=== PATIENT | female | born 1995 | race African-American/Black ===

== ENCOUNTER 2023-07-23 22:51 | Emergency (ER) | payer MEDICAID, SELFPAY ==
[2023-07-23 22:58] VITALS: BP 118/71
--- NOTE | 2023-07-23 23:10 | ED.GENMED ---
History of Present Illness
<CALEB Lamb - Last Filed: 07/24/23 03:31>
General
Chief Complaint: Chest Pain
Time Seen by Provider: 07/23/23 23:05
Travel History
Have you had any contact with someone who has COVID-19?: No
Do you have any symptoms of coronavirus? Fever > 100 degrees, chills, cough, shortness of breath, sore throat, loss of taste or smell, muscle aches, or headache?: No
History of Present Illness
History of Present Illness:
This is a 28 yo female with no significant PMH presenting for chest heaviness since 6 pm today. She states the sensation of heaviness is mild, located in the sternal area and radiates to her back. She first noticed this pain while sitting down today
and states this sensation has been constant since onset with no significant change in quality. She has not experienced this symptom before.
She notes that she has been excessively stressed recently due to family events.
She denies fever, chills, SOB, pain, dizziness, nausea, and vomiting.
Review of Systems
<CALEB Lamb - Last Filed: 07/24/23 03:31>
Review of Systems
Allergies reviewed?: Yes
Phy Exam
<CALEB Lamb - Last Filed: 07/24/23 03:31>
General Physical Exam
General Presentation: well appearing and no apparent distress
General age: appears stated age
General Habitus: normal
General Mental: alert
Cardiovascular Exam
Cardiovascular Exam: regular rate/rhythm
Pulmonary Exam
Pulmonary Exam: lungs clear
Scores
<CALEB Lamb - Last Filed: 07/24/23 03:31>
Heart Score for Chest Pain Patients
STEMI patient?: No
History: Slightly or Non-Suspicious
ECG: Normal
Age: </= 45 years
Risk Factors: No Risk Factors
Troponin: </= Normal Limit
Heart Score for Chest Pain Patients: 0
Heart Score Risk: 2.5% MACE over next 6 weeks
Course
<CALEB Lamb - Last Filed: 07/24/23 03:31>
Orders/Labs/Results
Orders:
Orders
07/23/23 22:53
Electrocardiogram (*1) Urgent
Reason for Study: Chest Pain
EKG- Treatment ONCE
07/23/23 23:58
Complete Blood Count/With Diff Urgent
Comprehensive Metabolic Panel Urgent
Troponin I Urgent
07/24/23 00:15
Bedside Glucose- Treatment ONCE
Abnormal Lab Results
07/23/23
23:58
RBC 4.06 L 10^6/uL
(4.20-5.40)
Hct 36.2 L %
(37.0-47.0)
MCH 31.5 H pg
(27.0-31.0)
MPV 11.0 H fL
(7.4-10.4)
Absolute Monos (auto) 0.7 H 10^3/uL
(0.1-0.6)
Sodium 134 L mmol/L
(135-145)
Glucose 101 H mg/dl
(70-99)
07/23/23 23:58
07/23/23 23:58
Vital Signs
Initial and Last Documented VS:
Initial Vital Signs
Temp Pulse Resp BP Pulse Ox
98.2 F 83 18 118/71 99
07/23/23 22:58 07/23/23 22:58 07/23/23 22:58 07/23/23 22:58 07/23/23 22:58
Last Documented Vital Signs
Temp Pulse Resp BP Pulse Ox
98.2 F 72 20 102/78 100
07/23/23 22:58 07/24/23 01:58 07/24/23 01:58 07/24/23 01:58 07/24/23 01:58
<Blake Lewis, DO - Last Filed: 07/24/23 01:21>
Orders/Labs/Results
Orders:
Orders
07/23/23 22:53
Electrocardiogram (*1) Urgent
Reason for Study: Chest Pain
EKG- Treatment ONCE
07/23/23 23:58
Complete Blood Count/With Diff Urgent
Comprehensive Metabolic Panel Urgent
Troponin I Urgent
07/24/23 00:15
Bedside Glucose- Treatment ONCE
Abnormal Lab Results
07/23/23
23:58
RBC 4.06 L 10^6/uL
(4.20-5.40)
Hct 36.2 L %
(37.0-47.0)
MCH 31.5 H pg
(27.0-31.0)
MPV 11.0 H fL
(7.4-10.4)
Absolute Monos (auto) 0.7 H 10^3/uL
(0.1-0.6)
Sodium 134 L mmol/L
(135-145)
Glucose 101 H mg/dl
(70-99)
07/23/23 23:58
07/23/23 23:58
Vital Signs
Initial and Last Documented VS:
Initial Vital Signs
Temp Pulse Resp BP Pulse Ox
98.2 F 83 18 118/71 99
07/23/23 22:58 07/23/23 22:58 07/23/23 22:58 07/23/23 22:58 07/23/23 22:58
Last Documented Vital Signs
Temp Pulse Resp BP Pulse Ox
98.2 F 72 20 102/78 100
07/23/23 22:58 07/24/23 01:58 07/24/23 01:58 07/24/23 01:58 07/24/23 01:58
<CALEB Lamb - Last Filed: 07/24/23 03:31>
MDM/Problems Addressed
Differential Diagnosis Includes:
Rule out MA
-She is experiencing chest heaviness with no other concerning symptoms, and is otherwise healthy. Suspicion for MA is low
-EKG NSR
-Troponin WNL
-patient declined chest XRAY
-Patient's symptoms likely due to anxiety/stress
Costochondritis
-no chest wall tenderness
<CALEB Lamb - Last Filed: 07/24/23 03:31>
*Radiology
Radiology exam reviewed: other (patient declined chest XRAY)
*Critical Care Note
Total Time (30-74mins, 75-104mins- exclusive of procedures): Not Applicable
<Blake Lewis DO - Last Filed: 07/24/23 01:21>
*EKG
Interpreted by ED Provider?: Yes
EKG Intrepretation Date: 07/23/23
EKG Intrepretation Time: 23:00
Interpretation: normal
Comparison EKG: no comparison EKG present
Rate: normal
Rhythm: sinus
Ischemia: no ischemia
<CALEB Lamb - Last Filed: 07/24/23 03:31>
Update Note
Update Note:
Patient informed that pain is most likely anxiety related. Patient is ok for discharge.
ED Attending Note
<CALEB Lamb - Last Filed: 07/24/23 03:31>
-
Portions of this chart may have been created with voice recognition software.� Occasional wrong word or��sound alike� substitutions may have occurred due to the inherent limitations of voice recognition software.
<Blake Amol Debbie, DO - Last Filed: 07/24/23 01:21>
ED Attending Note
Patient seen and examined by attending physician: Yes
I performed the substantive portion of visit, reviewed & personally made and approve the management plan that is documented in note by myself or DARRYL.: Yes
I performed a history and physical exam of patient and discussed management with resident, I reviewed resident's note and agree with documented findings and plan of care.: Yes
ED Attending Note:
I evaluated the patient at bedside. The patient has concerns for chest pain but is rather vague about the symptoms. She reports no significant trouble breathing. I offered to give her a DuoNeb as she has remote history of asthma but she declines.
She thought she might need oxygen however her room air sats are 100%, her breath sounds are clear, her vital signs are not consistent with PE and she is not tachycardic. She is very hesitant to have blood work drawn as well as imaging however
ultimately she accepted. Troponin negative, suspect anxiety as main cause of symptoms.
Discharge Plan
Departure
Patient Disposition: Home (Routine Discharge)
Date of Disposition: 07/24/23
Time of Disposition: 01:17
Patient with high blood pressure during this ER visit?: No
Discharge Problem:
Chest pain
Instructions: Chest Pain That Is Not Caused by the Heart (DC)
Prescriptions:
No Action
No Current Medications
Patient Comments:
pt states that she takes no medication.
Referrals:
[facility] [Provider Group]
[facility] [Outside] - Follow up in 2-3 days
NONE,* [Family Provider] -
Activity Restrictions/Additional Instructions:
Cardiac blood work and EKG shows no sign of heart attack. Return here if worse.
Interventions
Interventions:
*Risk Screen - Suicide Last Done: 07/24/23 02:02
*General Assessment Last Done: 07/23/23 23:19
*Neglect/Abuse Screening Last Done: 07/23/23 23:19
ED- Fall Risk Assessment Last Done: 07/23/23 23:19
*ED COVID-19 Vaccine History Last Done: 07/23/23 23:19
*Nursing Disposition Last Done: 07/24/23 02:02
ED- Cardiac Assessment Last Done: 07/23/23 23:19
Discharge Date and Time
Discharge Date/Time: 07/24/23 02:03
Print Language: GERMAN
[2023-07-24 00:09] LABS: % Basophils 1.1 % (0-2); % Eosinophils 1.5 % (0-6); % Immature Granulocytes 0.2 % (0-0.5); % Lymphocytes 33.8 % (20.5-51.1); % Neutrophils 56.4 % (42.2-75.2); Absolute Basophils 0.1 10^3/uL (0-0.2); Absolute Eosinophils 0.1 10^3/uL (0-0.7); Absolute Lymphocytes 3.1 10^3/uL (1.2-3.4); Absolute Monocytes 0.7 10^3/uL (0.1-0.6); Absolute Neutrophils 5.2 10^3/uL (1.4-6.5); Hematocrit 36.2 % (37.0-47.0); Hemoglobin 12.8 g/dL (12.0-16.0); Mean Corp Hgb Conc. 35.4 g/dL (33.0-37.0); Mean Corpuscular Hgb 31.5 pg (27.0-31.0); Mean Corpuscular Volume 89.2 fL (81.0-99.0); Nucleated Red Blood Cells % 0 %; Platelet Count 248 10^3/uL (130-400); Red Blood Cell Count 4.06 10^6/uL (4.20-5.40); Red Cell Dist. Width 12.1 % (11.5-14.5); White Blood Cell Count 9.3 10^3/uL (4.8-10.8)
[2023-07-24 00:33] LABS: ALT (SGPT) 14 U/L (0-35); AST (SGOT) 18 U/L (14-36); Alkaline Phosphatase 91 U/L (38-126); Blood Urea Nitrogen 9 mg/dl (7-17); Calcium 9.8 mg/dl (8.4-10.2); Carbon Dioxide 28 mmol/L (22-30); Chloride 104 mmol/L (98-107); Glucose 101 mg/dl (70-99); Potassium 3.7 mmol/L (3.5-5.1); Sodium 134 mmol/L (135-145); Total Bilirubin 0.4 mg/dl (0.2-1.3); eGFR > 60.00
[2023-07-24 00:37] LABS: Troponin I < 0.012 ng/ml
[2023-07-24 01:11] VITALS: BP 100/57
[2023-07-24 01:58] VITALS: BP 102/78
== END 2023-07-24 02:03 | disposition home or self-care (01) ==
LOC: EMR 22:51
PROVIDERS: EMERGENCY PHYSICIAN Emergency Medicine
DX: R07.89 Other chest pain (principal); M54.9 Dorsalgia, unspecified; Z73.3 Stress, not elsewhere classified; F41.9 Anxiety disorder, unspecified; J45.909 Unspecified asthma, uncomplicated; Z88.5 Allergy status to narcotic agent; Z88.8 Allergy status to other drugs, medicaments and biological substances
CPT/HCPCS: 99283; 80053; 84484; 85025; 93005

== ENCOUNTER 2023-07-30 18:27 | Emergency (ER) | payer MEDICAID, SELFPAY ==
[2023-07-30 18:31] VITALS: BP 111/74; BMI 29.3
[2023-07-30 20:10] VITALS: BP 102/58
--- NOTE | 2023-07-30 21:02 | ED.GENMED ---
History of Present Illness
General
Chief Complaint: Vaginal Bleeding
Source: patient
Exam Limitations: none
Time Seen by Provider: 07/30/23 20:08
Nursing documentation reviewed up to this point in time: agreed with
Travel History
Have you had any contact with someone who has COVID-19?: No
Do you have any symptoms of coronavirus? Fever > 100 degrees, chills, cough, shortness of breath, sore throat, loss of taste or smell, muscle aches, or headache?: No
History of Present Illness
History of Present Illness:
Patient is a 28-year-old female who presents to the ER for evaluation of spotting. She reports that she started with bright red blood vaginal spotting and now has become a little dark over the past 2 days. She has not needed to wear a pad or
tampon for this. She wants to make sure she is not . Her last regular menstrual period was 2-3 weeks ago. She reports it is a possibility that she is . She denies any actual abdominal pain. She had a 'little irritation'
vaginally looked in the area and noticed a stretch hayley in her right leg area she denies any abdominal pain /cramping. Denies any other complaints.
G7 4 lives births 2 misscarriage and one .
Patient reports she is currently homeless
Review of Systems
Review of Systems
Allergies reviewed?: Yes
All Other Systems: ROS reviewed and negative except as documented in HPI and ROS
Constitutional: Reports no symptoms; Denies fever, fatigue or chills
Respiratory: Reports no symptoms
Cardiac: Reports no symptoms
ABD/GI: Reports no symptoms; Denies abdominal pain or vomiting
: Reports other (vaginal spotting )
Musculoskeletal: Reports no symptoms
Skin: Reports no symptoms
Endocrine: Reports no symptoms
Hematologic/Lymphatic: Reports no symptoms
Psychiatric: Reports no symptoms
Phy Exam
General Physical Exam
General Presentation: no apparent distress
General age: appears stated age
General Skin: warm and dry
General Habitus: normal
General Mental: alert
General Hydration: appears well hydrated
Gastrointestinal Exam
Gastrointestinal Exam: normal bowel sounds, non tender and soft
Neurological Exam
Neurological Exam: alert and oriented x3
Musculoskeletal Exam
Musculoskeletal Exam: other (right inner thigh stretch hayley no bleeding or abrasion )
Skin Exam
Skin Exam: normal color and warm/dry
Psychiatric Exam
Psychiatric Exam: normal mood/affect
Course
Orders/Labs/Results
Orders:
Orders
07/30/23 20:36
Test Result ONCE
07/30/23 21:05
HCG, Urine Qualitative Screen Urgent
Date Specimen was Collected: 07/30/23
Time Specimen was Collected: 20:55
Urinalysis Reflex To Culture Urgent
Date Specimen was Collected: 09/28/17
Time Specimen was Collected: 01:33
Abnormal Lab Results
07/30/23
21:05
Urine Urobilinogen 3+ A
(Neg - 1+)
Vital Signs
Initial and Last Documented VS:
Initial Vital Signs
Temp Pulse Resp BP Pulse Ox
97.8 F 82 16 111/74 100
07/30/23 18:31 07/30/23 18:31 07/30/23 18:31 07/30/23 18:31 07/30/23 18:31
Last Documented Vital Signs
Temp Pulse Resp BP Pulse Ox
98.5 F 90 18 103/66 97
07/30/23 20:10 07/30/23 22:03 07/30/23 22:03 07/30/23 23:00 07/30/23 23:00
MDM/Problems Addressed
Differential Diagnosis Includes:
Not limited to dysfunction and bleeding
MDM/Problems Addressed:
Patient is a 28-year-old female presents to the ER complaining of vaginal spotting for the past 2 days. This is not like her normal menses and she wanted to be sure she was not . She does state that there is a possibility. She denies any
abdominal pain nausea vomiting. She denies any urinary frequency urgency or dysuria. She presents in no acute distress she has no other complaints. She is nontoxic-appearing abdomen soft nontender no evidence of anemia on exam, vital signs stable.
There is no blood in patient's urine and hCG is negative.
Patient denies any active bleeding she reports it is only intermittent when she wipes.
Patient stable to be discharged.
*Critical Care Note
Total Time (30-74mins, 75-104mins- exclusive of procedures): Not Applicable
ED Attending Note
-
Portions of this chart may have been created with voice recognition software.� Occasional wrong word or��sound alike� substitutions may have occurred due to the inherent limitations of voice recognition software.
Discharge Plan
Departure
Patient Disposition: Home (Routine Discharge)
Date of Disposition: 07/30/23
Time of Disposition: 23:13
Patient with high blood pressure during this ER visit?: No
Condition: Fair
Covid-19: Not Applicable
Discharge Problem:
Vaginal spotting
Instructions: Bleeding Between Periods
Prescriptions:
No Action
No Current Medications
Patient Comments:
pt states that she takes no medication.
Referrals:
[facility] [Outside]
NONE,* [Family Provider] -
Activity Restrictions/Additional Instructions:
You may follow-up with [facility] as discussed. Return if any worsening of symptoms.
Interventions
Interventions:
*Risk Screen - Suicide Last Done: 07/30/23 18:31
*Neglect/Abuse Screening Last Done: 07/30/23 18:31
ED- Fall Risk Assessment Last Done: 07/30/23 18:31
*ED COVID-19 Vaccine History Last Done: 07/30/23 18:31
*Nursing Disposition Last Done: 07/30/23 23:59
ED-Female Genitourinary Assessment Last Done: 07/30/23 20:03
Discharge Date and Time
Print Language: UPPER SORBIAN
[2023-07-30 21:22] LABS: HCG, Urine Qualitative Screen Negative
[2023-07-30 21:24] LABS: Urine Albumin Negative (Neg - Trace); Urine Bilirubin Negative (Negative); Urine Character Clear (Clear); Urine Color Yellow; Urine Glucose Negative (Negative); Urine Ketone Negative (Negative); Urine Leukocyte Negative (Negative); Urine Nitrite Negative (Negative); Urine Occult Blood Negative (Negative); Urine Urobilinogen 3+ (Neg - 1+)
[2023-07-30 21:58] VITALS: BP 102/58
[2023-07-30 22:03] VITALS: BP 100/59
[2023-07-30 23:00] VITALS: BP 103/66
== END 2023-07-31 00:39 | disposition home or self-care (01) ==
LOC: EMR 18:27
PROVIDERS: Nurse Practitioner; EMERGENCY PHYSICIAN Emergency Medicine
DX: N93.9 Abnormal uterine and vaginal bleeding, unspecified (principal); Z59.00 Homelessness unspecified
CPT/HCPCS: 99282; 81003; 81025

== ENCOUNTER 2023-08-12 03:43 | Emergency (ER) | payer MEDICAID, SELFPAY ==
[2023-08-12 03:48] VITALS: BP 108/71; BMI 34.8
[2023-08-12 04:15] LABS: HCG, Urine Qualitative Screen Positive
[2023-08-12 04:26] LABS: Urine Albumin Negative (Neg - Trace); Urine Bilirubin Negative (Negative); Urine Character Clear (Clear); Urine Color Yellow; Urine Glucose Negative (Negative); Urine Ketone Negative (Negative); Urine Leukocyte Trace (Negative); Urine Nitrite Negative (Negative); Urine Occult Blood Negative (Negative); Urine Urobilinogen Negative (Neg - 1+)
--- NOTE | 2023-08-12 05:21 | ED.GENMED ---
History of Present Illness
General
Chief Complaint: Urinary Symptoms
Source: patient and previous hospital records (ED visit July 29 with complaints of vaginal spotting, concern for possible . UCG was negative during that visit. Urinalysis was unremarkable)
Exam Limitations: none
Time Seen by Provider: 08/12/23 04:44
Nursing documentation reviewed up to this point in time: agreed with
Travel History
Have you had any contact with someone who has COVID-19?: No
Do you have any symptoms of coronavirus? Fever > 100 degrees, chills, cough, shortness of breath, sore throat, loss of taste or smell, muscle aches, or headache?: No
History of Present Illness
History of Present Illness:
This is a 28-year-old homeless woman who presents to the ED via EMS with complaints of dysuria, urgency, urinary frequency that began tonight. She denies back pain or abdominal pain, denies flank pain, no fever nor chills, no nausea nor vomiting,
no diarrhea or constipation. She denies vaginal discharge nor spotting or bleeding.
She was evaluated in this ED July 29 with complaints of vaginal spotting with concern for possible and at that time had noted last menstrual period was 2 to 3 weeks earlier. UCG at that visit was negative as well as urinalysis was
unremarkable.
She has not had her menses as yet this month, last menstrual period mid to early June. She does admit to unprotected sex and admits to the possibility of .
7, 4 live births, 2 miscarriages and 1 .
She is currently homeless, has been working with [facility] out reach program and states there is a 32 person waiting list for the homeless skilled nursing.
She has family living in [facility] [place] [facility] but states she is not able to reside with them.
Past History
Past History
ED Past Medical History: Asthma
ED Past Surgical History: Gynecological (Laparoscopy for ectopic )
Social History
Tobacco: Smoker
Alcohol: None
Drug: None
Personal: Single
Living: homeless
Employment: Not employed
Family History
Family History: Other (Noncontributory)
Phy Exam
Physical Exam
Physical Exam:
GENERAL: 28-year-old female appears her stated age, bright and alert, pleasant, appears in no acute distress. Mild odor of tobacco about the patient.
EYE: anicteric
NECK: Supple, nontender, no meningismus, no significant adenopathy.
ENT: oral mucosa is moist. No rhinorrhea.
CARDIAC: Regular rate and rhythm. no murmur.
LUNGS: Clear breath sounds bilaterally, no acute respiratory distress, no wheezes/rales/rhonchi
ABDOMEN: Soft, nondistended, without focal tenderness, no r/g, no cvat. normoactive BS.
NEUROLOGICAL: Alert and oriented x3, no focal neuro deficits. Gait is steady.
SKIN: Warm and dry, normal color, skin intact. No rash.
MUSCULOSKELETAL: No C/C/E. peripheral pulses are full and equal b/l. No palpable tenderness.
PSYCH: Mildly blunted affect, easily communicative.
Course
Orders/Labs/Results
Orders:
Orders
08/12/23 03:56
Test Result ONCE
08/12/23 03:58
HCG, Urine Qualitative Screen Urgent
Date Specimen was Collected: 08/12/23
Time Specimen was Collected: 03:56
UA Reflex to Culture [Urinalysis Reflex To Culture] Urgent
Date Specimen was Collected: 08/12/23
Time Specimen was Collected: 03:56
Urine Microscopic Reflex Cult Urgent
Urine Culture Urgent
ARTURO Source: U
Specimen Description:
Date Specimen was Collected: 08/12/23
Time Specimen was Collected: 03:56
08/12/23 05:16
HCG, Beta Quantitative [Beta HCG Quantitative] Urgent
Is this a screen?: No
08/12/23 06:20
Cephalexin Monohydrate [Keflex] 1,000 mg PO NOW STA
Abnormal Lab Results
08/12/23
03:58
Leukocyte Esterase Rfl Trace A
(Negative)
Urine RBC 3-6 A /HPF
(0-2)
Urine WBC (Reflex) 21-25 A /HPF
(0-5)
Urine Bacteria (Reflex) Many A
(Negative)
Vital Signs
Initial and Last Documented VS:
Initial Vital Signs
Temp Pulse Resp BP Pulse Ox
98.3 F 85 16 108/71 98
08/12/23 03:48 08/12/23 03:48 08/12/23 03:48 08/12/23 03:48 08/12/23 03:48
Last Documented Vital Signs
Temp Pulse Resp BP Pulse Ox
98.3 F 85 16 108/71 98
08/12/23 03:48 08/12/23 03:48 08/12/23 03:48 08/12/23 03:48 08/12/23 03:48
MDM/Problems Addressed
Differential Diagnosis Includes:
Concern for UTI, urethritis. Admits that overall symptoms are mild.
Concern for early however reassuring that patient has had no abdominal pain, no back pain nor flank pain.
Urinalysis thus far is positive for leukocyte Estrace, negative for blood. UCG is positive.
Will check quantitative hCG.
Awaiting urine microscopic.
*Critical Care Note
Total Time (30-74mins, 75-104mins- exclusive of procedures): Not Applicable
Update Note
Update Note:
08/12/2023 0621 AM
Patient remains comfortable, denies abdominal pain nor back pain.
Dysuria, urinary frequency have seemed to resolved since arrival to the ED.
Quantitative hCG is 1300.
Urinalysis appears to be a contaminated specimen with greater than 30 squamous epithelial cells but does show many bacteria, 20-25 WBCs. This could all be related to contamination but with early , dysuria and frequency must consider UTI
thus will treat with a 1 week course of Keflex. Urine culture is pending.
Patient has outpatient housing resources established.
Recommend follow-up with [facility] for routine care.
Return precautions discussed.
ED Attending Note
-
Portions of this chart may have been created with voice recognition software.� Occasional wrong word or��sound alike� substitutions may have occurred due to the inherent limitations of voice recognition software.
Discharge Plan
Departure
Patient Disposition: Home (Routine Discharge)
Date of Disposition: 08/12/23
Time of Disposition: 06:23
Patient with high blood pressure during this ER visit?: No
Condition: Good
Discharge Problem:
Urinary tract infection, Early stage of
Instructions: Urinary Tract Infection, Adult (DC)
Prescriptions:
New
cephalexin 500 mg capsule
1,000 mg PO BID 7 Days Qty: 28 0RF
No Action
No Current Medications
Patient Comments:
pt states that she takes no medication.
Referrals:
Federico Bryan MD [Active] - Call in 1-3 days for appt
NONE,* [Family Provider] -
Interventions
Interventions:
*Risk Screen - Suicide Last Done: 08/12/23 03:48
*General Assessment Last Done: 08/12/23 03:48
*Neglect/Abuse Screening Last Done: 08/12/23 03:48
ED- Fall Risk Assessment Last Done: 08/12/23 03:48
*ED COVID-19 Vaccine History Last Done: 08/12/23 03:48
ED-Female Genitourinary Assessment Last Done: 08/12/23 04:16
Discharge Date and Time
Print Language: [id number]
[2023-08-12 05:49] LABS: Urine Mucus Many; Urine Squamous Cell >30 /LPF (Few)
[2023-08-12 05:51] LABS: Urine Amorphous Seen; Urine Bacteria Many (Negative); Urine White Cell 21-25 /HPF (0-5)
[2023-08-12] MEDS: KEFLEX 1000 MG PO (06:25)
[2023-08-12 06:27] VITALS: BP 111/56
== END 2023-08-12 06:46 | disposition home or self-care (01) ==
LOC: EMR 03:43
PROVIDERS: EMERGENCY PHYSICIAN Emergency Medicine
DX: O99.891 Other specified diseases and conditions complicating pregnancy (principal); N39.0 Urinary tract infection, site not specified; R30.0 Dysuria; J45.909 Unspecified asthma, uncomplicated; F17.200 Nicotine dependence, unspecified, uncomplicated; Z59.01 Sheltered homelessness; Z87.59 Personal history of other complications of pregnancy, childbirth and the puerperium
CPT/HCPCS: 99282; 81003; 81015; 81025; 84702; 87086

== ENCOUNTER 2023-08-30 00:02 | Emergency (ER) | payer OTHER, SELFPAY ==
[2023-08-30 00:04] VITALS: BP 104/76
[2023-08-30 04:05] VITALS: BP 114/71
--- NOTE | 2023-08-30 09:13 | ED.GENMED ---
History of Present Illness
General
Chief Complaint: Swelling
Source: patient and records
Exam Limitations: none
Time Seen by Provider: 08/30/23 03:26
Nursing documentation reviewed up to this point in time: agreed with
Travel History
Have you had any contact with someone who has COVID-19?: No
Do you have any symptoms of coronavirus? Fever > 100 degrees, chills, cough, shortness of breath, sore throat, loss of taste or smell, muscle aches, or headache?: No
History of Present Illness
History of Present Illness:
28-year-old female with history as documented who is reportedly 7 weeks presents for evaluation of ankle swelling. She says this has been ongoing for the past few weeks. She says that she has swelling mainly around the ankles but
sometimes notices in her hands as well. Seems to be worse when she is on her feet most of the day. She denies any other symptoms including chest pain, shortness of breath.
Past History
Past History
ED Past Medical History: Asthma
ED Past Surgical History: Gynecological (Laparoscopy for ectopic )
Social History
Tobacco: Smoker
Alcohol: None
Drug: None
Personal: Single
Living: homeless
Employment: Not employed
Family History
Family History: Other (Noncontributory)
Review of Systems
Review of Systems
All Other Systems: ROS reviewed and negative except as documented in HPI and ROS
Constitutional: Denies fever
Respiratory: Denies trouble breathing
Cardiac: Denies chest pain or palpitations
ABD/GI: Denies abdominal pain
: Denies flank pain
Musculoskeletal: Reports edema; Denies neck pain or back pain
Neurological: Denies dizzy or headache
Phy Exam
Physical Exam
Physical Exam:
General: Awake, alert, oriented x3; no acute distress
Head: Normocephalic, atraumatic
Eyes: Conjunctiva normal
Throat: Airway intact, handling secretions
Neck: Trachea midline, supple without meningismus
Lungs: Breathing comfortably with no distress, normal pulse ox, normal respiratory rate of 100% on room air
Heart: Regular rate and rhythm�triage tachycardia resolved by my exam
Neuro: No gross deficits
Skin: no rash
Extremities: Patient has trace edema around the ankles bilaterally and symmetrically, no erythema of the lower legs, no calf edema or tenderness, no palpable cords,, equal pulses in all extremities
Scores
Heart Failure Risk
Heart Failure Risk Score: Not Applicable
Heart Score for Chest Pain Patients
STEMI patient?: Not applicable
Withdrawal Assessment of Alcohol
Withdrawal Assessment Completed?: Not applicable
Course
Vital Signs
Initial and Last Documented VS:
Initial Vital Signs
Temp Pulse Resp BP Pulse Ox
37.2 C 104 22 104/76 100
08/30/23 00:04 08/30/23 00:04 08/30/23 00:04 08/30/23 00:04 08/30/23 00:04
Last Documented Vital Signs
Temp Pulse Resp BP Pulse Ox
37.2 C 89 18 114/71 99
08/30/23 00:04 08/30/23 04:05 08/30/23 04:05 08/30/23 04:05 08/30/23 04:05
MDM/Problems Addressed
Differential Diagnosis Includes:
Dependent edema
MDM/Problems Addressed:
28-year-old female presents with bilateral ankle swelling in the setting of . She says sometimes she notices some puffiness of her hands as well. On exam she has symmetric edema just around the ankles which is quite limited and mild.
Suspect dependent edema in the setting of . She has nothing on exam to suggest DVT�there is no asymmetry, very limited swelling. In my judgment no further workup for this diagnosis indicated. Advised her to elevate legs, use compression
stockings and avoid prolonged standing. Stable for discharge.
*Pulse Oximetry
Patient hypoxic: no
*Critical Care Note
Total Time (30-74mins, 75-104mins- exclusive of procedures): Not Applicable
Data Reviewed
Source: patient and records
Further Testing Considered But Not Given:
Considered need for D-dimer or extremity ultrasound�in my judgment clinical suspicion for DVT is so low that further workup not indicated at this point in time
ED Attending Note
-
Portions of this chart may have been created with voice recognition software.� Occasional wrong word or��sound alike� substitutions may have occurred due to the inherent limitations of voice recognition software.
Discharge Plan
Departure
Patient Disposition: Home (Routine Discharge)
Date of Disposition: 08/30/23
Time of Disposition: 05:18
Patient with high blood pressure during this ER visit?: No
Discharge Problem:
Pedal edema
Instructions: Dependent Edema (DC), symptoms
Prescriptions:
No Action
No Current Medications
Patient Comments:
pt states that she takes no medication.
cephalexin 500 mg capsule
1,000 mg PO BID 7 Days Qty: 28 0RF
Referrals:
NONE,* [Family Provider] -
Activity Restrictions/Additional Instructions:
Thank you for visiting the Emergency Department at [facility].
1. Please schedule a follow up appointment as directed. Call first thing tomorrow morning to make an appointment.
2. If indicated, please take your medications as instructed and indicated on discharge paperwork.
3. If any of your symptoms do not improve, or persist, or become more severe within 6-12 hours, please return to the emergency department for further care.
4. Please return to the emergency department if you develop a headache, neck pain/stiffness, fever greater than 100.4F, chest pain, shortness of breath, persistent nausea, vomiting, slurred speech, difficulty walking, numbness/tingling, weakness,
signs of infection or any other symptoms that are worrisome to you.
Please call [phone] if you have any questions.
Interventions
Interventions:
*Risk Screen - Suicide Last Done: 08/30/23 06:07
*General Assessment Last Done: 08/30/23 06:07
*Neglect/Abuse Screening Last Done: 08/30/23 06:07
ED- Fall Risk Assessment Last Done: 08/30/23 06:07
*ED COVID-19 Vaccine History Last Done: 08/30/23 06:07
*Nursing Disposition Last Done: 08/30/23 06:07
ED- Cardiac Assessment Last Done: 08/30/23 04:06
ED-Female Genitourinary Assessment Last Done: 08/30/23 04:06
ED- Pulmonary Assessment Last Done: 08/30/23 04:06
ED-Skin Assessment Last Done: 08/30/23 04:06
Discharge Date and Time
Discharge Date/Time: 08/30/23 06:09
Print Language: ARMENIAN
== END 2023-08-30 06:09 | disposition home or self-care (01) ==
LOC: EMR 00:02
PROVIDERS: EMERGENCY PHYSICIAN Emergency Medicine
DX: O26.891 Other specified pregnancy related conditions, first trimester (principal); R60.0 Localized edema; Z3A.01 Less than 8 weeks gestation of pregnancy
CPT/HCPCS: 99282

== ENCOUNTER 2023-09-08 23:50 | Emergency (ER) | payer OTHER, SELFPAY ==
[2023-09-09 00:07] VITALS: BP 107/64
--- NOTE | 2023-09-09 00:16 | ED.GENMED ---
History of Present Illness
General
Chief Complaint: Swelling
Source: patient
Exam Limitations: none
Time Seen by Provider: 09/08/23 23:50
Travel History
Have you had any contact with someone who has COVID-19?: No
Do you have any symptoms of coronavirus? Fever > 100 degrees, chills, cough, shortness of breath, sore throat, loss of taste or smell, muscle aches, or headache?: No
History of Present Illness
History of Present Illness:
This is a 28 year old female that comes in by ambulance with c/o swelling. States that her abd is swollen and that her ankles are swelling. States that she was here about a week ago and told to use krista bandages, rest and elevated. State that she has
been going this and they got better but now the swelling is back again. States that her abd is also mores swollen then normal as she started that she is only 9 weeks . States that she is nauseated, has a headache and some lightheadedness.
States that she had a baby 8 months ago and this is her 8th . Denies any fever, chills, chest pain, SOB, abd pain, vomiting, diarrhea, urinary burning.
Past History
Past History
ED Past Medical History: Asthma, Psychiatric (Anxiety, Depression) and Other (Palpitations, Pre-Eclampsia)
ED Past Surgical History: Gynecological (Laparoscopy for ectopic )
Social History
Tobacco: Smoker
Alcohol: None
Drug: None
Personal: Single
Living: homeless
Employment: Not employed
Family History
Family History: Other (Noncontributory)
Review of Systems
Review of Systems
All Other Systems: ROS reviewed and negative except as documented in HPI and ROS
Constitutional: Reports no symptoms; Denies fever or chills
EENT: Reports no symptoms
Respiratory: Reports no symptoms; Denies cough or trouble breathing
Cardiac: Denies chest pain
ABD/GI: Reports nausea and other (Feels abd is swollen); Denies abdominal pain, vomiting or diarrhea
: Reports no symptoms; Denies dysuria, frequency or urgency
Musculoskeletal: Reports edema (ankle swelling)
Skin: Reports no symptoms
Neurological: Reports dizzy (Slight) and headache
Psychiatric: Reports no symptoms
Phy Exam
General Physical Exam
General Presentation: well appearing and no apparent distress
General age: appears stated age
General Skin: warm and dry
General Habitus: normal
General Mental: alert
General Hydration: appears well hydrated
ENT Exam
ENT Exam: TM's normal, pharynx normal and neck supple
Eye Exam
Eye Exam: EOMI
Cardiovascular Exam
Cardiovascular Exam: regular rate/rhythm, no edema, no murmur and normal peripheral pulses
Pulmonary Exam
Pulmonary Exam: lungs clear, no respiratory distress, no rales, chest non tender, no crackles, no rhonchi, no wheezing and no cough
Gastrointestinal Exam
Gastrointestinal Exam: non tender, soft, no organomegaly, no pulsatile mass, non distended and other (Hypoactive bowel sounds)
Musculoskeletal Exam
Musculoskeletal Exam: full ROM and edema (Nonpitting ankle swelling)
Skin Exam
Skin Exam: normal color, warm/dry, no rash and no petechia
Psychiatric Exam
Psychiatric Exam: normal mood/affect
Course
Orders/Labs/Results
Orders:
Orders
09/09/23 00:14
US 1st Trimester Urgent
Comment:
Reason For Exam: check
09/09/23 00:17
Complete Blood Count/With Diff Urgent
Comprehensive Metabolic Panel Urgent
HCG, Beta Quantitative [Beta HCG Quantitative] Urgent
Is this a screen?: No
Urinalysis Reflex To Culture Urgent
Date Specimen was Collected: 09/09/23
Time Specimen was Collected: 00:16
Abnormal Lab Results
09/09/23
00:17
WBC 11.3 H 10^3/uL
(4.8-10.8)
RBC 3.87 L 10^6/uL
(4.20-5.40)
Hct 35.8 L %
(37.0-47.0)
MCH 32.0 H pg
(27.0-31.0)
MPV 11.4 H fL
(7.4-10.4)
Abs Immat Gran (auto) 0.2 H 10^3/uL
(0-0.05)
Absolute Neuts (auto) 6.8 H 10^3/uL
(1.4-6.5)
Absolute Monos (auto) 0.8 H 10^3/uL
(0.1-0.6)
Immature Gran % 1.3 H %
(0-0.5)
Urine Ketones Trace A
(Negative)
09/09/23 00:17
09/09/23 00:17
Vital Signs
Initial and Last Documented VS:
Initial Vital Signs
Temp Pulse Resp BP Pulse Ox
97.6 F 91 20 107/64 100
09/09/23 00:07 09/09/23 00:07 09/09/23 00:07 09/09/23 00:07 09/09/23 00:07
Last Documented Vital Signs
Temp Pulse Resp BP Pulse Ox
97.6 F 91 20 108/66 97
09/09/23 00:07 09/09/23 00:07 09/09/23 00:07 09/09/23 02:00 09/09/23 02:01
MDM/Problems Addressed
Differential Diagnosis Includes:
Swelling with ,
MDM/Problems Addressed:
This is a 28 year old homeless female that comes in with c/o ankle swelling and she feels that her abd is swollen. States that she was here about a week ago and told to wear krista bandages. States that this did help but then the swelling came back
again.
Will check labs, uS and urine.
Back into see patient. Explalned that her blood work is normal along with her urine. US shows a single intrauterine . Explained to patient that she has to watch what she eats and to elevate her feet to help keep the swelling down. Patient
to return with any concerns.
Chronic conditions affecting care:
NA
Acute Exacerbation and/or Progression of Chronic Illness:
NA
*Radiology
Radiology exam reviewed: radiology read reviewed (US-[place]-Single live intrauterine dating 8 weeks and 5 days. heart rate 167. No subchorionic hemorrhage. Normal left ovary. right ovary not visualized. No pelvic free fluid. )
*Pulse Oximetry
Patient hypoxic: no
*EKG
Interpreted by ED Provider?: NA
Rate: EKG- N/A
*Rn Documentation Specialist Interpretation
Rate: Rn Documentation Specialist- N/A
*Critical Care Note
Total Time (30-74mins, 75-104mins- exclusive of procedures): Not Applicable
ED Attending Note
-
Portions of this chart may have been created with voice recognition software.� Occasional wrong word or��sound alike� substitutions may have occurred due to the inherent limitations of voice recognition software.
Discharge Plan
Departure
Patient Disposition: Home (Routine Discharge)
Date of Disposition: 09/09/23
Time of Disposition: 03:09
Patient with high blood pressure during this ER visit?: No
Condition: Good
Covid-19: Not Applicable
Discharge Problem:
Ankle swelling
Instructions: Dependent Edema (DC)
Prescriptions:
No Action
No Current Medications
Patient Comments:
pt states that she takes no medication.
Referrals:
NONE,* [Family Provider] -
Activity Restrictions/Additional Instructions:
As discussed, your blood work is normal and your urine is negative for infection. Your US shows that you have one intrauterine . Please elevate your feet when you can. Follow up with the FINISHING AREA OPERATOR for further evaluation. Watch your sodium
intake. IF YOU HAVE ANY OTHER CONCERNS PLEASE RETURN TO THE EMERGENCY ROOM.
Interventions
Interventions:
*Risk Screen - Suicide Last Done: 09/08/23 23:58
*General Assessment Last Done: 09/08/23 23:58
*Neglect/Abuse Screening Last Done: 09/08/23 23:58
*ED COVID-19 Vaccine History Last Done: 09/08/23 23:58
ED- Cardiac Assessment Last Done: 09/09/23 01:12
ED- Pulmonary Assessment Last Done: 09/09/23 01:12
ED-Skin Assessment Last Done: 09/09/23 01:12
Discharge Date and Time
Print Language: KYRGYZ
[2023-09-09 00:41] LABS: Urine Albumin Negative (Neg - Trace); Urine Bilirubin Negative (Negative); Urine Character Clear (Clear); Urine Color Yellow; Urine Glucose Negative (Negative); Urine Ketone Trace (Negative); Urine Leukocyte Negative (Negative); Urine Nitrite Negative (Negative); Urine Occult Blood Negative (Negative); Urine Specific Gravity 1.015 (<1.030); Urine Urobilinogen 1+ (Neg - 1+); Urine pH 6.5 (5.0-9.0)
[2023-09-09 00:43] LABS: % Basophils 0.7 % (0-2); % Eosinophils 2.8 % (0-6); % Immature Granulocytes 1.3 % (0-0.5); % Lymphocytes 27.5 % (20.5-51.1); % Monocytes 7.3 % (1.7-9.3); % Neutrophils 60.4 % (42.2-75.2); Absolute Basophils 0.1 10^3/uL (0-0.2); Absolute Eosinophils 0.3 10^3/uL (0-0.7); Absolute Immature Granulocytes 0.2 10^3/uL (0-0.05); Absolute Lymphocytes 3.1 10^3/uL (1.2-3.4); Absolute Monocytes 0.8 10^3/uL (0.1-0.6); Absolute Neutrophils 6.8 10^3/uL (1.4-6.5); Hematocrit 35.8 % (37.0-47.0); Hemoglobin 12.4 g/dL (12.0-16.0); Mean Corp Hgb Conc. 34.6 g/dL (33.0-37.0); Mean Corpuscular Volume 92.5 fL (81.0-99.0); Mean Platelet Volume 11.4 fL (7.4-10.4); Nucleated Red Blood Cells % 0 %; Platelet Count 243 10^3/uL (130-400); Red Blood Cell Count 3.87 10^6/uL (4.20-5.40); Red Cell Dist. Width 12.8 % (11.5-14.5); White Blood Cell Count 11.3 10^3/uL (4.8-10.8)
[2023-09-09 00:49] LABS: ALT (SGPT) 19 U/L (0-35); AST (SGOT) 26 U/L (14-36); Albumin 4.2 g/dl (3.5-5.0); Alkaline Phosphatase 82 U/L (38-126); Blood Urea Nitrogen 9 mg/dl (7-17); Calcium 9.9 mg/dl (8.4-10.2); Carbon Dioxide 24 mmol/L (22-30); Chloride 103 mmol/L (98-107); Estimated Creatinine Clearance > 125 ml/min; Glucose 81 mg/dl (70-99); Potassium 4.5 mmol/L (3.5-5.1); Sodium 135 mmol/L (135-145); Total Bilirubin 0.5 mg/dl (0.2-1.3); Total Protein 7.2 g/dl (6.3-8.2); eGFR > 60.00
[2023-09-09 01:00] VITALS: BP 102/62
[2023-09-09 02:00] VITALS: BP 108/66
== END 2023-09-09 05:06 | disposition home or self-care (01) ==
LOC: EMR 23:50
PROVIDERS: Clinical Nurse Specialist Family Health; EMERGENCY PHYSICIAN Emergency Medicine
DX: O99.891 Other specified diseases and conditions complicating pregnancy (principal); R22.43 Localized swelling, mass and lump, lower limb, bilateral; O99.511 Diseases of the respiratory system complicating pregnancy, first trimester; J45.909 Unspecified asthma, uncomplicated; O99.331 Smoking (tobacco) complicating pregnancy, first trimester; F17.200 Nicotine dependence, unspecified, uncomplicated; Z3A.09 9 weeks gestation of pregnancy; Z59.00 Homelessness unspecified
CPT/HCPCS: 99284; 76801; 80053; 81003; 84702; 85025

== ENCOUNTER 2023-09-14 03:29 | Emergency (ER) | payer OTHER, SELFPAY ==
[2023-09-14 03:30] VITALS: BP 97/65; BMI 36.3
--- NOTE | 2023-09-14 03:36 | ED.GENMED ---
History of Present Illness
<ST CandeAZ - Last Filed: 09/14/23 04:47>
General
Chief Complaint: Swelling
Source: patient
Exam Limitations: none
Time Seen by Provider: 09/14/23 03:31
History of Present Illness
History of Present Illness:
28 YO F with PMH of ectopic , depress
Past History
<ST CandeAZ - Last Filed: 09/14/23 04:47>
Past History
ED Past Medical History: Asthma, Psychiatric (Anxiety, Depression) and Other (Palpitations, Pre-Eclampsia)
ED Past Surgical History: Gynecological (Laparoscopy for ectopic )
Social History
Tobacco: Smoker
Alcohol: None
Drug: None
Personal: Single
Living: homeless
Employment: Not employed
Family History
Family History: Other (Noncontributory)
Phy Exam
<Rosie Castellanos [facility] - Last Filed: 09/14/23 04:47>
Physical Exam
Physical Exam:
Swelling in LE with right calf > left calf
Scores
<Meenakshi Genao DO - Last Filed: 09/14/23 05:55>
Heart Failure Risk
Heart Failure Risk Score: Not Applicable
Course
<ST CandeAZ - Last Filed: 09/14/23 04:47>
Orders/Labs/Results
Orders:
Orders
09/14/23 04:00
Heart Tones ONCE
09/14/23 04:05
Acetaminophen [Tylenol] 1,000 mg PO NOW STA
US Periph Venous LOWER Ext Bar Urgent
Comment:
Reason For Exam: b/l LE edema R>L
09/14/23 04:44
TSH Reflex To Free T4 Urgent
09/14/23 05:[address] Non Medication Order As Directed
Physician Order: knee high RENE stockings b/l
Vital Signs
Initial and Last Documented VS:
Initial Vital Signs
Temp Pulse Resp BP Pulse Ox
98.2 F 77 18 97/65 98
09/14/23 03:30 09/14/23 03:30 09/14/23 03:30 09/14/23 03:30 09/14/23 03:30
Last Documented Vital Signs
Temp Pulse Resp BP Pulse Ox
98.2 F 77 18 97/65 97
09/14/23 03:30 09/14/23 03:30 09/14/23 03:30 09/14/23 03:30 09/14/23 03:50
<Meenakshi Genao, DO - Last Filed: 09/14/23 05:55>
Orders/Labs/Results
Orders:
Orders
09/14/23 04:00
Heart Tones ONCE
09/14/23 04:05
Acetaminophen [Tylenol] 1,000 mg PO NOW STA
US Periph Venous LOWER Ext Bar Urgent
Comment:
Reason For Exam: b/l LE edema R>L
09/14/23 04:44
TSH Reflex To Free T4 Urgent
09/14/23 05:[address] Non Medication Order As Directed
Physician Order: knee high RENE stockings b/l
Vital Signs
Initial and Last Documented VS:
Initial Vital Signs
Temp Pulse Resp BP Pulse Ox
98.2 F 77 18 97/65 98
09/14/23 03:30 09/14/23 03:30 09/14/23 03:30 09/14/23 03:30 09/14/23 03:30
Last Documented Vital Signs
Temp Pulse Resp BP Pulse Ox
98.2 F 77 18 97/65 97
09/14/23 03:30 09/14/23 03:30 09/14/23 03:30 09/14/23 03:30 09/14/23 03:50
<CALEB Castellon - Last Filed: 09/14/23 04:47>
*Critical Care Note
Total Time (30-74mins, 75-104mins- exclusive of procedures): Not Applicable
<Meenakshi Genao DO - Last Filed: 09/14/23 05:55>
*Radiology
Radiology exam reviewed: other (Venous Doppler bilateral lower extremities negative for DVT. Preliminary report by architectural technologist.)
*Pulse Oximetry
Patient hypoxic: no
ED Attending Note
<CALEB Castellon - Last Filed: 09/14/23 04:47>
-
Portions of this chart may have been created with voice recognition software.� Occasional wrong word or��sound alike� substitutions may have occurred due to the inherent limitations of voice recognition software.
<Meenakshi Genao DO - Last Filed: 09/14/23 05:55>
ED Attending Note
Patient seen and examined by attending physician: Yes
I performed the substantive portion of visit, reviewed & personally made and approve the management plan that is documented in note by myself or DARRYL.: Yes
I performed a history and physical exam of patient and discussed management with resident, I reviewed resident's note and agree with documented findings and plan of care.: Yes
ED Attending Note:
This is a 28-year-old homeless woman who arrives via EMS with complaints of continued bilateral lower extremity swelling for which she initially presented to this ED August 29 and then again September 08. She is currently 9 weeks 5 days with noted
ultrasound September 08 showing viable IUP at 9 weeks gestation. Laboratory studies during that ED visit September 08 were all unremarkable.
She admits that lower extremity edema improves with wrapping her legs with Branden wraps but does not resolve and seems worse today.
Right lower leg swelling is worse than left leg. She denies coughing or shortness of breath, no fever nor chills.
She does admit to moderate daily walking, standing that seems to worsen her leg swelling.
She plans to follow-up with MANGLE PRESS CATCHER at [place] but canceled her initial appointment and has this rescheduled for the near future.
She takes no medicines on a daily basis.
There is a question of mild thyroid disorder in the past. Recent laboratory studies during ED visit September 08 did not assess thyroid function.
She denies abdominal pain. She admits to scant spotting a few days ago which has since resolved. No dysuria no urgency but does admit to somewhat chronic urinary frequency.
Urinalysis September 08 was unremarkable.
She is 8, 4 live births, 2 miscarriages and 1 .
Patient continues to work with a assistant case manager from [facility] out reach program�assisting her with housing.
GENERAL: 28-year-old obese female appears her stated age, awake and alert, pleasant, appears in no acute distress. Preferentially sleeps when undisturbed.
EYE: anicteric
NECK: Supple, nontender, no meningismus, no significant adenopathy. No JVD.
ENT: posterior pharynx is clear, oral mucosa is moist. TM clear b/l, nares patent.
CARDIAC: Regular rate and rhythm. no murmur.
LUNGS: Clear breath sounds bilaterally, no acute respiratory distress, no wheezes/rales/rhonchi
ABDOMEN: Rotund, soft, nondistended, without focal tenderness, no r/g, no cvat. normoactive BS.
NEUROLOGICAL: Alert and oriented x3, no focal neuro deficits.
SKIN: Warm and dry, normal color, skin intact. No rash.
MUSCULOSKELETAL: Moderate somewhat tense edema bilateral lower extremities right greater than left, no clubbing or cyanosis, peripheral pulses are full and equal b/l. Mild generalized tenderness to the feet and lower legs. There is no erythema.
No ulcerations.
PSYCH: Normal and appropriate interaction.
I suspect dependent edema related to obesity, hot weather and daily walking/standing but must consider DVT thus will check ultrasound bilateral lower extremities.
Reassuring unremarkable pelvic ultrasound just 5 days ago showing a viable IUP at 9 weeks.
Unremarkable laboratory studies 5 days ago as well as urinalysis.
Questionable prior history of thyroid disorder thus will check TSH with reflex to free T4.
Will check bedside heart tones versus bedside ultrasound.
09/14/2023 04:40 AM
Bedside ultrasound shows single viable IUP with positive cardiac activity. heart tones measured at 150.
09/14/2023 0550 AM
Venous Doppler bilateral lower extremities negative for DVT.
TSH is normal.
Patient continues to appear comfortable, sleeps when undisturbed.
I suspect lower extremity edema is related to current as well as prior pregnancies, obesity, environmental factor including hot humid weather and prolonged standing and walking.
Will fit with knee-high RENE stockings and recommend she elevate her legs when sitting, avoid high sodium foods otherwise stay well-hydrated on a daily basis.
Follow-up with sterilizer operator as already planned.
Continue follow-up with [facility] assistant case manager/for housing assistance.
Discharge Plan
Departure
Patient Disposition: Home (Routine Discharge)
Date of Disposition: 09/14/23
Time of Disposition: 05:48
Patient with high blood pressure during this ER visit?: No
Condition: Good
Discharge Problem:
Dependent edema, First trimester
Instructions: Healthy Weight Gain During , Dependent Edema (DC), - The Third Month
Prescriptions:
No Action
No Current Medications
Patient Comments:
pt states that she takes no medication.
Referrals:
Emery Jaffe DO [Family Provider] - Call in 1-3 days for appt
Interventions
Interventions:
*Risk Screen - Suicide Last Done: 09/14/23 03:30
*General Assessment Last Done: 09/14/23 03:30
*Neglect/Abuse Screening Last Done: 09/14/23 03:30
ED- Fall Risk Assessment Last Done: 09/14/23 03:30
*ED COVID-19 Vaccine History Last Done: 09/14/23 03:30
ED- Cardiac Assessment Last Done: 09/14/23 03:50
ED- Pulmonary Assessment Last Done: 09/14/23 03:50
ED-Skin Assessment Last Done: 09/14/23 03:50
Discharge Date and Time
Print Language: LATVIAN
[2023-09-14] MEDS: TYLENOL 1000 MG PO (04:32)
[2023-09-14 05:35] LABS: TSH Reflex To Free T4 1.71 uIU/ml (0.47-4.68)
[2023-09-14 06:25] VITALS: BP 99/56
--- NOTE | 2023-09-14 13:58 | CM ---
Placed call to [facility] [phone] to obtain name of Game Producer at [facility] that is working with this patient on housing. Spoke to Grayson. Grayson stated this patient is well known to the various [facility] agencies in the area. He provided me with the name of her case management associate, Zelda Roman, at [phone]. Call placed to Zelda Roman. She stated she has been trying to contact the patient so that she can connect her with nurses who make
visits to people living on the street and connect her with a program called [facility] and . She said if she comes in again to please ask her to call her (Zelda) at [phone] so that she can connect her with needed services.
== END 2023-09-14 06:25 | disposition home or self-care (01) ==
LOC: EMR 03:29
PROVIDERS: EMERGENCY PHYSICIAN Emergency Medicine; FAMILY PHYSICIAN Family Medicine
DX: O99.891 Other specified diseases and conditions complicating pregnancy (principal); R60.0 Localized edema; Z59.00 Homelessness unspecified; F17.200 Nicotine dependence, unspecified, uncomplicated; J45.909 Unspecified asthma, uncomplicated
CPT/HCPCS: 99284; 84443; 93970

== ENCOUNTER 2023-09-14 17:53 | Emergency (ER) | payer OTHER, SELFPAY ==
[2023-09-14 18:01] VITALS: BP 109/69
--- NOTE | 2023-09-14 19:05 | ED.GENMED ---
History of Present Illness
General
Chief Complaint: Dental Problem
Source: patient
Exam Limitations: none
Time Seen by Provider: 09/14/23 18:40
Travel History
Have you had any contact with someone who has COVID-19?: No
Do you have any symptoms of coronavirus? Fever > 100 degrees, chills, cough, shortness of breath, sore throat, loss of taste or smell, muscle aches, or headache?: No
History of Present Illness
History of Present Illness:
28-year-old female 9 weeks presents complaining of jaw discomfort bilateral upper and lower wisdom teeth discomfort and muscle cramps. She has been here multiple times and was just discharged earlier this morning. She has had full
workups. She also states she has not had a tetanus vaccine in over 5 years. She is currently homeless. No fevers. No other complaints at this time
Past History
Past History
ED Past Medical History: Asthma, Psychiatric (Anxiety, Depression) and Other (Palpitations, Pre-Eclampsia)
ED Past Surgical History: Gynecological (Laparoscopy for ectopic )
Social History
Tobacco: Smoker
Alcohol: None
Drug: None
Personal: Single
Living: homeless
Employment: Not employed
Family History
Family History: Other (Noncontributory)
Phy Exam
Physical Exam
Physical Exam:
General: Well-appearing female no acute respiratory distress
HEENT: Normocephalic dentition appears well. No swelling. No trismus or drooling. Neck is supple no adenopathy
Heart: Regular rate and rhythm no murmurs lungs: Clear no wheeze or rales extremities: No cyanosis
Course
Orders/Labs/Results
Orders:
Orders
09/14/23 18:53
Acetaminophen [Tylenol] 650 mg PO NOW STA
Tetanus/Diphth/Acelpertussis [Adacel] 0.5 ml IM .ONCE ONE
Vital Signs
Initial and Last Documented VS:
Initial Vital Signs
Temp Pulse Resp BP Pulse Ox
98.0 F 74 18 109/69 100
09/14/23 18:01 09/14/23 18:01 09/14/23 18:01 09/14/23 18:01 09/14/23 18:01
Last Documented Vital Signs
Temp Pulse Resp BP Pulse Ox
98.0 F 74 18 109/69 100
09/14/23 18:01 09/14/23 18:01 09/14/23 18:01 09/14/23 18:01 09/14/23 18:01
MDM/Problems Addressed
Differential Diagnosis Includes:
Dental discomfort. No sign of localizing infection. Patient agitative her tetanus and is 9 weeks . Will supply tetanus vaccine here given Tylenol for pain. No indication for intervention or admission. She has been seen by welfare case worker
*Critical Care Note
Total Time (30-74mins, 75-104mins- exclusive of procedures): Not Applicable
ED Attending Note
-
Portions of this chart may have been created with voice recognition software.� Occasional wrong word or��sound alike� substitutions may have occurred due to the inherent limitations of voice recognition software.
Discharge Plan
Departure
Patient Disposition: Home (Routine Discharge)
Date of Disposition: 09/14/23
Time of Disposition: 19:08
Patient with high blood pressure during this ER visit?: No
Discharge Problem:
Pain, dental
Instructions: Dental Pain (DC)
Prescriptions:
No Action
No Current Medications
Patient Comments:
pt states that she takes no medication.
Referrals:
Emery Jaffe DO [Family Provider] -
Activity Restrictions/Additional Instructions:
Please continue using Tylenol for pain. Return if worse otherwise follow-up with dentist.
Interventions
Interventions:
*Risk Screen - Suicide Last Done: 09/14/23 18:01
*General Assessment Last Done: 09/14/23 18:01
*Neglect/Abuse Screening Last Done: 09/14/23 18:07
Discharge Date and Time
Print Language: MONGOLIAN
[2023-09-14] MEDS: TYLENOL 650 MG PO (19:20)
[2023-09-14] MEDS: ADACEL 0.5 ML IM (19:20)
== END 2023-09-14 19:26 | disposition home or self-care (01) ==
LOC: EMR 17:53
PROVIDERS: EMERGENCY PHYSICIAN Student in an Organized Health Care Education/Training Program; FAMILY PHYSICIAN Family Medicine
DX: O99.891 Other specified diseases and conditions complicating pregnancy (principal); K08.89 Other specified disorders of teeth and supporting structures; Z23 Encounter for immunization; Z3A.09 9 weeks gestation of pregnancy; Z59.00 Homelessness unspecified; J45.909 Unspecified asthma, uncomplicated; F41.8 Other specified anxiety disorders; R00.2 Palpitations; F17.200 Nicotine dependence, unspecified, uncomplicated
CPT/HCPCS: 99282; 90471; 90715

== ENCOUNTER 2023-09-24 02:48 | Emergency (ER) | payer OTHER, SELFPAY ==
[2023-09-24 02:49] VITALS: BP 101/66
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
[2023-09-24] MEDS: TYLENOL 1000 MG PO (05:28)
[2023-09-24 05:49] VITALS: BP 107/65
== END 2023-09-24 06:57 | disposition home or self-care (01) ==
LOC: EMR 02:48
PROVIDERS: EMERGENCY PHYSICIAN Student in an Organized Health Care Education/Training Program
DX: O99.891 Other specified diseases and conditions complicating pregnancy (principal); S93.409A Sprain of unspecified ligament of unspecified ankle, initial encounter; X50.1XXA Overexertion from prolonged static or awkward postures, initial encounter; Z3A.10 10 weeks gestation of pregnancy; J45.909 Unspecified asthma, uncomplicated; F41.8 Other specified anxiety disorders; F17.200 Nicotine dependence, unspecified, uncomplicated
CPT/HCPCS: 99283; 73630

== ENCOUNTER 2023-10-15 11:53 | Emergency (ER) | payer OTHER, SELFPAY ==
[2023-10-15 11:58] VITALS: BP 110/73
[2023-10-15 12:29] LABS: % Basophils 0.6 % (0-2); % Eosinophils 2.3 % (0-6); % Immature Granulocytes 0.8 % (0-0.5); % Lymphocytes 22.1 % (20.5-51.1); % Monocytes 6.1 % (1.7-9.3); % Neutrophils 68.1 % (42.2-75.2); Absolute Basophils 0.1 10^3/uL (0-0.2); Absolute Eosinophils 0.3 10^3/uL (0-0.7); Absolute Immature Granulocytes 0.1 10^3/uL (0-0.05); Absolute Lymphocytes 2.6 10^3/uL (1.2-3.4); Absolute Monocytes 0.7 10^3/uL (0.1-0.6); Absolute Neutrophils 8.1 10^3/uL (1.4-6.5); Hemoglobin 12.4 g/dL (12.0-16.0); Mean Corp Hgb Conc. 35.4 g/dL (33.0-37.0); Mean Corpuscular Hgb 32.5 pg (27.0-31.0); Mean Corpuscular Volume 91.6 fL (81.0-99.0); Mean Platelet Volume 11.4 fL (7.4-10.4); Nucleated Red Blood Cells % 0 %; Platelet Count 210 10^3/uL (130-400); Red Blood Cell Count 3.82 10^6/uL (4.20-5.40); Red Cell Dist. Width 12.6 % (11.5-14.5); White Blood Cell Count 11.9 10^3/uL (4.8-10.8)
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
[2023-10-15 13:37] LABS: ALT (SGPT) < 10 U/L (0-35); AST (SGOT) 15 U/L (14-36); Albumin 3.6 g/dl (3.5-5.0); Alkaline Phosphatase 77 U/L (38-126); Blood Urea Nitrogen 7 mg/dl (7-17); Calcium 9.3 mg/dl (8.4-10.2); Carbon Dioxide 24 mmol/L (22-30); Chloride 104 mmol/L (98-107); Glucose 90 mg/dl (70-99); Potassium 3.9 mmol/L (3.5-5.1); Sodium 133 mmol/L (135-145); Total Bilirubin 0.5 mg/dl (0.2-1.3); Total Protein 6.4 g/dl (6.3-8.2); eGFR > 60.00
--- NOTE | 2023-10-15 14:12 | EDRN ---
Pt walking in ER hallways, pt instructed that she needed to stay in her room while she waits for U/S, patient stated ' I just want to go outside to sit on the bench for some fresh air'. Pt stated ' I am cold'. Pt was offered a warm blanket, which
patient decline. Pt raising voice with this RN stating ' I do not like the staff here and will just go somewhere else' Pt offered ways to make her comfortable in her ER room and informed that she is just waiting on going to U/S. Pt refused to go
back to room and asked for the way out. Pt then stopped at the charge desk to continue to yell at staff. Security contacted, patient started yelling that security was called and began walking out of department. PT heard yelling in WR, security with
patient.
[2023-10-15 14:13] VITALS: BP 105/65
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
== END 2023-10-15 18:36 | disposition home or self-care (01) ==
LOC: EMR 11:53
PROVIDERS: Emergency Medicine; EMERGENCY PHYSICIAN Emergency Medicine
DX: O20.0 Threatened abortion (principal); Z3A.14 14 weeks gestation of pregnancy; F17.200 Nicotine dependence, unspecified, uncomplicated
CPT/HCPCS: 99284; 76815; 80053; 84702; 85025